=== PATIENT | female | born 1940 | race Caucasian/White ===

== ENCOUNTER 2021-10-28 11:22 | Emergency (ER) | payer MEDICARE, OTHER ==
[~2021-10-28] VITALS: Ht 167.6 cm; Wt 61.7 kg
[2021-10-28 13:26] LABS: International Normalized Ratio 2.37; Prothrombin Time Results 23.5 Sec (9.7-11.5)
[2021-10-28] MEDS ORDERED: LORCET 5-325 M1 EACH PO (14:45)
== END 2021-10-28 14:49 | disposition home or self-care (01) ==
LOC: ER 11:22
PROVIDERS: Physician Assistant
DX: S40.022A Contusion of left upper arm, initial encounter (principal); W01.198A Fall on same level from slipping, tripping and stumbling with subsequent striking against other object, initial encounter
CPT/HCPCS: 70450; 73080; 85610; 96372; 99284-25; A9270; J3010